=== PATIENT | female | born 1980 | race American Indian/Alaskan Native ===

== ENCOUNTER 2017-11-28 10:57 | Emergency (ER) | payer MEDICAID ==
[2017-11-28 11:55] LABS: Basophils # (Auto) 0.1 K/mm3 (0.0-0.1); Basophils % (Auto) 0.5 % (0.0-1.8); Eosinophils # (Auto) 0.1 K/mm3 (0.0-0.4); Eosinophils % (Auto) 0.6 % (0.0-4.3); Hematocrit 39.9 % (30.3-42.9); Hemoglobin 12.5 gm/dl (10.1-14.3); Lymphocytes # (Auto) 1.2 K/mm3 (1.2-5.4); Lymphocytes % (Auto) 9.4 % (13.4-35.0); Mean Corpuscular HGB Conc 31 % (30-34); Mean Corpuscular Hemoglobin 26 pg (28-32); Mean Corpuscular Volume 83 fl (79-97); Monocytes # (Auto) 0.6 K/mm3 (0.0-0.8); Monocytes % (Auto) 4.6 % (0.0-7.3); Platelet Count 383 K/mm3 (140-440); Red Blood Count 4.83 M/mm3 (3.65-5.03); Red Cell Distribution Width 17.1 % (13.2-15.2)
[2017-11-28 12:11] LABS: Alanine Aminotransferase 9 units/L (7-56); Albumin 3.9 g/dL (3.9-5); BUN/Creatinine Ratio 16; Blood Urea Nitrogen 11 mg/dL (7-17); Hemolysis Index 15
[2017-11-28 20:10] LABS: Bilirubin,Urine NEG (Negative); Blood,Urine SM (Negative); Color,Urine Yellow (Yellow); Mucus,Urine 3+ /HPF; Protein,Urine <15 mg/dL mg/dL (Negative); Urobilinogen,Urine < 2.0 mg/dL (<2.0)
[2017-11-28 21:55] LABS: HCG Qualitative,Urine Negative (Negative)
[2017-11-28] MEDS ORDERED: BENTYL PO ONE (23:06)
[2017-11-28] MEDS ORDERED: ZOFRAN ODT PO ONE (23:06)
[2017-11-28] MEDS ORDERED: PEPCID PO ONE (23:06)
[2017-11-28] MEDS ORDERED: CARAFATE PO ONE (23:06)
--- NOTE | 2017-11-28 23:06 | Emergency Department Report ---
ED Abdominal Pain HPI - General Chief Complaint: Abdominal Pain Stated Complaint: ABD PAIN Time Seen by Provider: 11/28/17 21:39 Source: patient, RN notes reviewed Mode of arrival: Ambulatory Limitations: No Limitations - History of Present Illness Initial Comments: This is a 37-year-old female who was previously on known to this provider. The patient does not have a local primary care doctor or any chronic medical conditions. She reports that she is not . She presents to the ER with epigastric pain that is achy and cramping, a few episodes of watery diarrhea. There is no lower abdominal pain. There is no vaginal bleeding. There is no vaginal discharge. She denies urinary symptoms. Her symptoms worsen when she consumes heavy and spicy foods. There is no headache, neck pain, chest pain, there are no DVT or pulmonary embolus risk factors. She has not delivered her given within the past 2 months. She does not take oral contraceptives. MD Complaint: abdominal pain -: Gradual Location: LUQ, RUQ, epigastric Severity: mild, moderate Severity scale (0 -10): 6 Quality: cramping, aching Consistency: intermittent Improves With: rest Worsens With: eating Associated Symptoms: nausea, vomiting, diarrhea. denies: fever, chills, constipation, dysuria, hematemesis, hematochezia, melena, hematuria, anorexia, syncope - Related Data Previous Rx's Medication Instructions Recorded Last Taken Type Clindamycin [Clindamycin CAP] 2 tab PO BID #40 capsule 12/19/13 Unknown Rx HYDROcodone/APAP 5-325 [Reading 1 each PO Q6HR PRN #14 tablet 12/19/13 Unknown Rx 5-325 mg TAB] Ibuprofen [Motrin] 800 mg PO Q8H PRN #20 tablet 12/19/13 Unknown Rx Ondansetron [Zofran Odt] 4 mg PO Q4H PRN #20 tab.rapdis 05/12/14 Unknown Rx Azithromycin [Zithromax Z-CARRIE] 250 mg PO DAILY #6 tablet 07/08/14 Unknown Rx Codeine Phosphate/Guaifenesin 5 ml PO Q6H PRN #8 oz 07/08/14 Unknown Rx [guaiFENesin-Codeine Syrup] Ibuprofen [Motrin 800 MG tab] 800 mg PO Q8H #30 tablet 12/19/14 Unknown Rx Prednisone [Prednisone 5 mg (6-Day 5 mg PO .TAPER #1 tab.ds.pk 07/08/14 Unknown Rx Pack, 21 Tabs)] Famotidine [Pepcid] 20 mg PO BID #10 tablet 11/29/17 Unknown Rx Ondansetron [Zofran Odt] 4 mg PO Q8HR PRN #20 tab.rapdis 11/29/17 Unknown Rx Allergies Allergy/AdvReac Type Severity Reaction Status Date / Time morphine Allergy Itching Verified 12/18/13 21:13 Penicillins Allergy Itching Verified 12/18/13 21:12 ED Review of Systems ROS: Stated complaint: ABD PAIN Other details as noted in HPI Comment: All other systems reviewed and negative ED Past Medical Hx - Past Medical History Previous Medical History?: No - Surgical History Past Surgical History?: No Additional Surgical History: Tubal ligation. D&C - Social History Smoking Status: Never Smoker Substance Use Type: None - Medications Home Medications: Home Medications Medication Instructions Recorded Confirmed Last Taken Type Clindamycin [Clindamycin CAP] 2 tab PO BID #40 capsule 12/19/13 Unknown Rx HYDROcodone/APAP 5-325 [Reading 1 each PO Q6HR PRN #14 tablet 12/19/13 Unknown Rx 5-325 mg TAB] Ibuprofen [Motrin] 800 mg PO Q8H PRN #20 tablet 12/19/13 Unknown Rx Ondansetron [Zofran Odt] 4 mg PO Q4H PRN #20 tab.rapdis 05/12/14 Unknown Rx Azithromycin [Zithromax Z-CARRIE] 250 mg PO DAILY #6 tablet 07/08/14 Unknown Rx Codeine Phosphate/Guaifenesin 5 ml PO Q6H PRN #8 oz 07/08/14 Unknown Rx [guaiFENesin-Codeine Syrup] Ibuprofen [Motrin 800 MG tab] 800 mg PO Q8H #30 tablet 07/08/14 Unknown Rx Prednisone [Prednisone 5 mg (6-Day 5 mg PO .TAPER #1 tab.ds.pk 07/08/14 Unknown Rx Pack, 21 Tabs)] Famotidine [Pepcid] 20 mg PO BID #10 tablet 11/29/17 Unknown Rx Ondansetron [Zofran Odt] 4 mg PO Q8HR PRN #20 tab.rapdis 11/29/17 Unknown Rx ED Physical Exam - General Limitations: No Limitations General appearance: alert, in no apparent distress - Head Head exam: Present: atraumatic, normocephalic - Eye Eye exam: Present: normal appearance, EOMI. Absent: nystagmus - ENT ENT exam: Present: normal exam, normal orophraynx, mucous membranes moist, normal external ear exam - Neck Neck exam: Present: normal inspection, full ROM - Respiratory Respiratory exam: Present: normal lung sounds bilaterally. Absent: respiratory distress - Cardiovascular Cardiovascular Exam: Present: regular rate, normal rhythm, normal heart sounds. Absent: bradycardia, tachycardia, irregular rhythm, systolic murmur, diastolic murmur, rubs, gallop - GI/Abdominal GI/Abdominal exam: Present: soft, normal bowel sounds. Absent: distended, tenderness, guarding, rebound, rigid, pulsatile mass - Extremities Exam Extremities exam: Present: normal inspection, full ROM, normal capillary refill , other (there is no palpable cord. There is a negative Homans sign.). Absent : pedal edema, joint swelling, calf tenderness - Back Exam Back exam: Present: normal inspection, full ROM. Absent: tenderness, CVA tenderness (R), paraspinal tenderness, vertebral tenderness - Neurological Exam Neurological exam: Present: alert, oriented X3, CN II-XII intact, normal gait, other (Extraocular movements intact. Tongue midline. No facial droop. Facial sensation intact to light touch in the V1, V2, V3 distribution bilaterally. 5 and 5 strength in 4 extremities.. Sensation is intact to light touch in 4 extremities.). Absent: motor sensory deficit - Psychiatric Psychiatric exam: Present: normal affect, normal mood - Skin Skin exam: Present: warm, dry, intact, normal color. Absent: rash ED Course Vital Signs 11/28/17 11/28/17 11/28/17 11:23 15:51 21:25 Temperature 98.3 F 98.6 F Pulse Rate 96 H 87 87 Respiratory 16 16 16 Rate Blood Pressure 139/106 Blood Pressure 132/73 147/97 [Right] O2 Sat by Pulse 98 100 100 Oximetry 11/28/17 21:29 Temperature Pulse Rate Respiratory 16 Rate Blood Pressure Blood Pressure [Right] O2 Sat by Pulse Oximetry ED Medical Decision Making - Lab Data Result diagrams: 11/28/17 11:38 11/28/17 11:38 Vital Signs 11/28/17 11/28/17 11/28/17 11:23 15:51 21:25 Temperature 98.3 F 98.6 F Pulse Rate 96 H 87 87 Respiratory 16 16 16 Rate Blood Pressure 139/106 Blood Pressure 132/73 147/97 [Right] O2 Sat by Pulse 98 100 100 Oximetry 11/28/17 21:29 Temperature Pulse Rate Respiratory 16 Rate Blood Pressure Blood Pressure [Right] O2 Sat by Pulse Oximetry Lab Results 11/28/17 11/28/17 11/28/17 Range/Units 11:38 11:38 19:56 WBC 12.3 H (4.5-11.0) K/mm3 RBC 4.83 (3.65-5.03) M/mm3 Hgb 12.5 (10.1-14.3) gm/dl Hct 39.9 (30.3-42.9) % MCV 83 (79-97) fl MCH 26 L (28-32) pg MCHC 31 (30-34) % RDW 17.1 H (13.2-15.2) % Plt Count 383 (140-440) K/mm3 Lymph % (Auto) 9.4 L (13.4-35.0) % [place] % (Auto) 4.6 (0.0-7.3) % Eos % (Auto) 0.6 (0.0-4.3) % Baso % (Auto) 0.5 (0.0-1.8) % Lymph # 1.2 (1.2-5.4) K/mm3 [place] # 0.6 (0.0-0.8) K/mm3 Eos # 0.1 (0.0-0.4) K/mm3 Baso # 0.1 (0.0-0.1) K/mm3 Seg Neutrophils % 84.9 H (40.0-70.0) % Seg Neutrophils # 10.4 H (1.8-7.7) K/mm3 Sodium 139 (137-145) mmol/L Potassium 4.0 (3.6-5.0) mmol/L Chloride 100.1 (98-107) mmol/L Carbon Dioxide 26 (22-30) mmol/L Anion Gap 17 mmol/L BUN 11 (7-17) mg/dL Creatinine 0.7 (0.7-1.2) mg/dL Estimated GFR > 60 ml/min BUN/Creatinine Ratio 16 % Glucose 111 H (65-100) mg/dL Calcium 9.0 (8.4-10.2) mg/dL Total Bilirubin 0.40 (0.1-1.2) mg/dL AST 11 (5-40) units/L ALT 9 (7-56) units/L Alkaline Phosphatase 51 (35-129) units/L Total Protein 8.0 (6.3-8.2) g/dL Albumin 3.9 (3.9-5) g/dL Albumin/Globulin Ratio 1.0 % Urine Color Yellow (Yellow) Urine Turbidity Clear (Clear) Urine pH 5.0 (5.0-7.0) Ur Specific [place] 1.029 (1.003-1.030) Urine Protein <15 mg/dl (Negative) mg/dL Urine Glucose (UA) Neg (Negative) mg/dL Urine Ketones Neg (Negative) mg/dL Urine Blood Sm (Negative) Urine Nitrite Neg (Negative) Urine Bilirubin Neg (Negative) Urine Urobilinogen < 2.0 (<2.0) mg/dL Ur Leukocyte Esterase Neg (Negative) Urine WBC (Auto) 1.0 (0.0-6.0) /HPF Urine RBC (Auto) 6.0 (0.0-6.0) /HPF U Epithel Cells (Auto) 3.0 (0-13.0) /HPF Urine Mucus 3+ /HPF Urine HCG, Qual (Negative) 11/28/17 Range/Units 21:42 WBC (4.5-11.0) K/mm3 RBC (3.65-5.03) M/mm3 Hgb (10.1-14.3) gm/dl Hct (30.3-42.9) % MCV (79-97) fl MCH (28-32) pg MCHC (30-34) % RDW (13.2-15.2) % Plt Count (140-440) K/mm3 Lymph % (Auto) (13.4-35.0) % [place] % (Auto) (0.0-7.3) % Eos % (Auto) (0.0-4.3) % Baso % (Auto) (0.0-1.8) % Lymph # (1.2-5.4) K/mm3 [place] # (0.0-0.8) K/mm3 Eos # (0.0-0.4) K/mm3 Baso # (0.0-0.1) K/mm3 Seg Neutrophils % (40.0-70.0) % Seg Neutrophils # (1.8-7.7) K/mm3 Sodium (137-145) mmol/L Potassium (3.6-5.0) mmol/L Chloride (98-107) mmol/L Carbon Dioxide (22-30) mmol/L Anion Gap mmol/L BUN (7-17) mg/dL Creatinine (0.7-1.2) mg/dL Estimated GFR ml/min BUN/Creatinine Ratio % Glucose (65-100) mg/dL Calcium (8.4-10.2) mg/dL Total Bilirubin (0.1-1.2) mg/dL AST (5-40) units/L ALT (7-56) units/L Alkaline Phosphatase (35-129) units/L Total Protein (6.3-8.2) g/dL Albumin (3.9-5) g/dL Albumin/Globulin Ratio % Urine Color (Yellow) Urine Turbidity (Clear) Urine pH (5.0-7.0) Ur Specific [place] (1.003-1.030) Urine Protein (Negative) mg/dL Urine Glucose (UA) (Negative) mg/dL Urine Ketones (Negative) mg/dL Urine Blood (Negative) Urine Nitrite (Negative) Urine Bilirubin (Negative) Urine Urobilinogen (<2.0) mg/dL Ur Leukocyte Esterase (Negative) Urine WBC (Auto) (0.0-6.0) /HPF Urine RBC (Auto) (0.0-6.0) /HPF U Epithel Cells (Auto) (0-13.0) /HPF Urine Mucus /HPF Urine HCG, Qual Negative (Negative) - EKG Data -: EKG Interpreted by Al EKG shows normal: sinus rhythm, axis, intervals, QRS complexes, ST-T waves Rate: normal - EKG Data When compared to previous EKG there are: previous EKG unavailable - Medical Decision Making Differential diagnosis, including but not limited to: GERD, gastritis, hiatal hernia, H. pylori Assessment and plan: 37-year-old female, with no pulmonary embolus or DVT risk factors, low risk by well's criteria, perc negative, with nonspecific epigastric pain. She is nontender, afebrile, and with reassuring vital signs. Her EKG was morphologically unremarkable, and her laboratory studies were unremarkable. She felt improved after appropriate symptomatic therapy and she is given appropriate counseling and anticipatory guidance. She will be discharged at this time, return precautions are reviewed. Critical care attestation.: If time is entered above; I have spent that time in minutes in the direct care of this critically ill patient, excluding procedure time. ED Disposition Clinical Impression: Epigastric abdominal pain Disposition: TO HOME OR SELFCARE Is pt being admited?: No Does the pt Need Aspirin: No Condition: Stable Instructions: Abdominal Pain (ED) Additional Instructions: Avoid consumption of heavy, spicy foods. Avoid aspirin, Motrin, ibuprofen, Naprosyn, alcohol, caffeinated beverages. Drink plenty of water, and eat plenty of fruits, fibers, vegetables. Take the medications as needed/directed. Return to the ER right away with new pain, worsening pain, migration of pain, fevers, chills, lethargy, irritability, projectile vomiting, change in mental status, confusion, inability to tolerate liquid feeds. Referrals: PRIMARY CARE, [Primary Care Provider] - 3-5 Days DREW BONILLA MD [Staff Physician] - 3-5 Days
[2017-11-29 01:23] VITALS: BP 124/84
== END 2017-11-29 01:23 | disposition home or self-care (01) ==
LOC: ED 10:57
DX: R10.13 Epigastric pain (principal); R19.7 Diarrhea, unspecified; R11.2 Nausea with vomiting, unspecified; Z88.5 Allergy status to narcotic agent; Z88.0 Allergy status to penicillin; Z98.51 Tubal ligation status
CPT/HCPCS: 36415; 80053; 81001; 81025; 85025; 93005; 93010; 99283; Q0162